=== PATIENT | female | born 1990 | race Caucasian/White ===

== ENCOUNTER 2023-11-10 17:04 | Inpatient (IN) | payer OTHER, SELFPAY ==
[2023-11-10] VITALS (13 sets, daily range): BP systolic 115–141; BP diastolic 59–90; PULSE 71–92; RESP 16; TEMP 36.8; O2SAT 95–99; BMI 29.8
--- NOTE | 2023-11-10 18:37 | W.PM.VAGDEL1 ---
Procedure Procedure Done: Global Events: Labor < 37 Weeks and Premature Rupture of Membrane Intrapartal Events: Precipitous Labor <3 Hrs Delivery monitor: external FHT Route of delivery: Laceration description: Perineal - 2nd Degree Delivery repair: Vicryl Estimated blood loss (mL): 200 Anesthesia type: None Disposition: floor Narrative: Patient had sudden onset of contractions and gush of fluid at 4 pm today. Presented to the center and found to be in active labor at 5 cm. Progressed quickly to complete at 1709 and not able to get any anesthesia. Started involuntarily pushing and delivered a baby via the OA position at 1736. Strip was category 2 during labor. Baby was in the 80s for about 3 minutes prior to delivery. We planned to do an episotomy and a vacuum but she then had a spontaneous delivery. Baby cried initially but breathing and tone were weak so cord was clamped x 2 and brought to the warmer for resuscitation. Placenta delivered at 1754 and was intact with a 3 vessel cord. 2nd degree midline repair performed in the usual fashion. Rectal exam performed to show no sutures in the rectum. Mom set up for routine cares. Gender: Male presentation: vertex Placental Delivery Description: Spontaneous Cord Description: 3 Vessels
--- NOTE | 2023-11-10 18:50 | PM.OBHPLI ---
OB - H&P: HPI Labor/Induction History of Present Illness Date Seen: 11/10/23 Chief Complaint: The patient is a 33 year old 1 para 0 at 35 weeks gestation by LMP, who presents with ROSI and PPROM. Chief complaint: maternity : 1 Para: 0 Narrative: Mohamud Davenport is a 33 year old female who had an uncomplicated to date other than anxiety on sertraline and mild iron deficiency anemia on iron. She had sudden onset of contractions and leaking fluid at 1600 today. Otherwise had been doing well. History of Present Dating criteria: based on LMP care: good care Ultrasounds: normal 1st trimester US and normal mid trimester US complications: labor Medical complications: none Labs Blood type: O (+) positive Rubella: immune RPR/VDLR: nonreactive GBS status: negative HBsAG: negative Review of Systems Status of ROS: Reports: 10 or more systems reviewed and unremarkable except as noted in History and below Meds Home Medications and Allergies Home Medications Medication Instructions Recorded Confirmed Type ferrous sulfate 325 mg (65 mg 325 mg PO DAILY 11/10/23 11/10/23 History iron) tablet (FeroSul) sertraline 50 mg tablet 50 mg PO QAM 11/10/23 11/10/23 History OB - H&P: Exam Physical Exam: Vital signs: Pulse BP Pulse Ox 72 132/79 99 11/10/23 18:37 11/10/23 18:37 11/10/23 17:27 Narrative: Appears uncomfortable per RN on admission, cervix 5 cm per RN, other exam deferred due to active labor. Detailed Labor and Delivery Exam: Patient Gravid: Yes Dilation (cm): 5 Effacement (%): 100 Fetus (Single): Heart Rate Baseline: 120 Monitor Accelerations: Present Monitor Decelerations: None Jail Variability: Moderate (6-25) OB - Problem Based A/P Additional Plan (1) labor: Status: Acute Plan Expectant management. Start antibiotics due to GBS unknown status. Delivery/Labor/Induction Plan Plan: expectant management Procedures Vaginal Delivery presentation: vertex
[2023-11-10] MEDS: SERTRALINE 50 MG TABLET PO (23:50)
[2023-11-11 04:04] VITALS: BP 113/73; PULSE 69; RESP 17; TEMP 36.7; O2SAT 97
[2023-11-11 06:39] LABS: Hemoglobin* 10.4 gm/dL (12.0-16.0)
--- NOTE | 2023-11-11 07:46 | P.OBPN_ITS ---
OB - PN:Subj Subjective Date Seen: 11/11/23 Narrative: Patient seen today on PP day 1 after precipitous delivery at 35.5GA. Doing well. Pain under control with ibuprofen. Lochia decreasing. Ambulating. Tolerating diet. Normal urination. Has not had bowel movement Working on . Baby doing well for . OB - PN: Obj Exam Physical Exam: Vital signs: Temp Pulse Resp BP Pulse Ox O2 Del Method 98.1 F 69 17 113/73 97 Room Air 11/11/23 04:04 11/11/23 04:04 11/11/23 04:04 11/11/23 04:04 11/11/23 04:04 11/11/23 04:04 Narrative: Gen: NAD CV: RRR, normal S1,S2, no murmurs Resp: normal rate and effort, clear to auscultation Abd: Soft, uterus firm and nontender below umbilicus Ext: Warm, dry, 2+ pedal pulses, no edema b/l. Calves non-tender to palpation. Mood: Appropriate OB - PN: Obj Data Labs Labs: Laboratory Results - last 24 hr 11/11/23 06:20 Hgb 10.4 L OB - PN: A/P Delivery Assessment and Plan (1) labor: Status: Acute (2) Precipitous delivery: Status: Acute Plan Comments: PPD#1 s/p precipitous , doing well. Plan: -- Continue current cares. -- Encourage ambulation. -- , recommend configuration management consultant tomorrow -- Take Vitamins while . -- Colace for constipation prophylaxis. -- At risk of depression, monitor. Continue sertraline 50mg at bedtime -- Anticipate discharge to home in 1-2 days.
[2023-11-11] MEDS: ACETAMINOPHEN 500 MG TABLET 1000 MG PO ×2 (07:55→23:05)
[2023-11-11] MEDS: DOCUSATE SODIUM 100 MG CAPSULE PO (07:58)
[2023-11-11 07:59] VITALS: BP 115/78; PULSE 69; RESP 16; TEMP 36.6; O2SAT 96
[2023-11-11 12:29] VITALS: BP 125/69; PULSE 71; RESP 16; TEMP 36.7; O2SAT 96
[2023-11-11 15:37] VITALS: BP 128/78; PULSE 72; RESP 16; TEMP 36.7; O2SAT 96
[2023-11-11] MEDS: SERTRALINE 50 MG TABLET PO (20:50)
[2023-11-11 23:08] VITALS: BP 114/75; PULSE 62; RESP 16; O2SAT 96
[2023-11-12 05:19] VITALS: TEMP 36.6
[2023-11-12 08:12] VITALS: BP 115/75; PULSE 71; RESP 16
--- NOTE | 2023-11-12 09:23 | P.DS_ITS ---
DS: Providers Provider Date Seen: 11/12/23 Date of admission: 11/10/23 17:04 Primary care physician: Mack Tian MD Admitting Clinician: Lori Glynn MD Date of Discharge: 11/12/23 Exam Narrative: Exam Narrative: Gen: alert, pleasant, NAD Resp: CTA b/l, comfortable work of breathing on room air Heart: RRR, no murmurs Abd: fundus firm Extremities: no LE edema Psych: mood and affect appropriate Const: Vital Signs, click to edit/add: Vital Signs - 24 hr 11/11/23 12:29 11/11/23 15:37 11/11/23 23:08 Temperature 98.1 F 98.0 F Pulse Rate [Pulse Oximeter] 71 72 62 Respiratory Rate 16 16 16 Blood Pressure [Le ft Arm] 125/69 128/78 114/75 Pulse Oximetry 96 96 96 Oxygen Delivery Me thod Room Air Room Air Room Air 11/12/23 05:19 11/12/23 08:12 Temperature 97.8 F Pulse Rate [Pulse Oximeter] 71 Respiratory Rate 16 Blood Pressure [Le ft Arm] 115/75 Pulse Oximetry Oxygen Delivery Me thod Room Air OB - DS: Summary Hospital Course Hospital Course: The patient is a 33 year old G 1 P 1 at 35.5 weeks gestation that was admitted to the Center on 11/10/23 for SROM and labor. She had an uncomplicated vaginal delivery. She delivered a viable male . She is breast and bottle feeding. the patient has done well. Lochia appropriate. Ambulating. No headaches or dizziness. Peripartum Data delivery method: Vaginal Laceration description: Perineal - 2nd Degree Episiotomy description: None complications: none [place] Infant Gender: Male Infant Discharge Plan: Home Time Spent with Patient Time attestation: Total time spent providing and/or coordinating discharge services: Time spent: Less than 30 minutes Discharge Plan Discharge Disposition: Home, Self-Care Date of Admission: 11/10/23 17:04 Primary Care Provider: Mack Tian Condition: Stable Anticipated Discharge Date/Time: 11/12/23 12:00 Discharge Medications: New acetaminophen 500 mg Tablet 1,000 mg PO Q6H PRN (Reason: pain/fever) Qty: 40 0RF docusate sodium 100 mg Capsule 100 mg PO DAILY PRN (Reason: constipation) Qty: 30 0RF (DME) breast pump Device See Rx Instructions .ROUTE Qty: 1 0RF Rx Instructions: As directed Continued ferrous sulfate [FeroSul] 325 mg (65 mg iron) tablet 325 mg PO DAILY sertraline 50 mg tablet 50 mg PO QAM Discharge Orders: Discharge Order (Routine); Ordered 11/12/23 Ordered By: Lyric Hutchins Patient Education: Your Baby (DC), Vaginal Delivery (DC) Follow Up Appointments: Mack Tian MD [Primary Care Provider] - [facility]: [facility] Inst[facility]
[2023-11-13 23:53] LABS: Rapid Plasma Reagin (RPR) Non Reactive (Non Reactive)
== END 2023-11-12 13:55 | disposition home or self-care (01) | DRG 807 ==
LOC: OB OUT 17:04 → OB 17:04
PROVIDERS: Admitting Provider Student in an Organized Health Care Education/Training Program; PCP Surgery; Visit Provider Student in an Organized Health Care Education/Training Program
DX: O60.14X0 Preterm labor third trimester with preterm delivery third trimester, not applicable or unspecified (principal); Z37.0 Single live birth; O99.344 Other mental disorders complicating childbirth; F41.9 Anxiety disorder, unspecified; O99.013 Anemia complicating pregnancy, third trimester; O70.1 Second degree perineal laceration during delivery; O62.3 Precipitate labor; D64.9 Anemia, unspecified; O99.02 Anemia complicating childbirth; Z3A.35 35 weeks gestation of pregnancy
CPT/HCPCS: 36415; 85018; 86592; 88307; A9270